=== PATIENT | male | born 1950 | race Caucasian/White ===

== ENCOUNTER 2019-04-24 06:00 | Outpatient (RCR) | payer MEDICARE, SELFPAY | END 2019-05-09 00:01 | LOC: TPT 06:00 | PROVIDERS: Family Provider Nurse Practitioner Family; Visit Provider Psychiatry & Neurology Psychiatry | DX: M54.6 Pain in thoracic spine (principal); M54.2 Cervicalgia; M25.519 Pain in unspecified shoulder | CPT/HCPCS: 97110; 97161; 97530; G0283 ==

== ENCOUNTER 2019-05-17 | Outpatient (RCR) | payer MEDICARE, SELFPAY | END 2019-05-31 | disposition home or self-care (01) | LOC: TPT | PROVIDERS: Visit Provider Psychiatry & Neurology Psychiatry | DX: M54.2 Cervicalgia (principal); G44.52 New daily persistent headache (NDPH); M25.511 Pain in right shoulder; M54.6 Pain in thoracic spine | CPT/HCPCS: 97110; 97140; G0283 ==

== ENCOUNTER 2019-06-01 14:00 | Emergency (ER) | payer MEDICARE, SELFPAY ==
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
[2019-06-01 14:02] VITALS: BP 111/68; PULSE 75; RESP 20; O2SAT 98
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
[2019-06-01 14:19] LABS: Basophils % 0.1 %; Eosinophils % 0.1 %; Hematocrit 35.5 % (42.0-52.0); Hemoglobin 11.7 g/dL (11.7-16.6); Lymphocytes # 1.4 10^3/uL (0.8-4.8); Lymphocytes % 12.1 %; Mean Corpuscular Hemoglobin 31.3 pg (28.0-34.0); Mean Corpuscular Volume 94.9 fL (80-94); Mean Platelet Volume 10.4 fL (7.4-10.4); Monocytes # 0.7 10^3/uL (0.2-0.9); Monocytes % 6.4 %; Neutrophils # 9.3 10^3/uL (1.8-7.7); Neutrophils % 80.5 %; Nucleated Red Blood Cells % 0 %; Platelet Count 231 10^3/cmm (130-400); Red Blood Count 3.74 10^6/uL (4.1-5.3); Red Cell Distribution Width 11.5 % (12.1-15.1); White Blood Count 11.6 10^3/uL (4.0-10.0)
[2019-06-01 14:29] LABS: Alanine Aminotransferase 34 U/L (0-41); Alkaline Phosphatase 67 IU/L (40-130); Anion Gap 17.1 (5-19); Aspartate Amino Transferase 64 U/L (0-40); Blood Urea Nitrogen 8 mg/dL (8-23); Calcium 9.1 mg/dL (8.5-10.5); Carbon Dioxide 26 mmol/L (22-29); Chloride 96 mmol/L (98-107); Globulin 2.7 g/dL (1.3-4.6); Glomerular Filtration Rate 66.6 mL/min (90-130); Glucose 167 mg/dL (74-106); Potassium 3.1 mmol/L (3.5-5.1); Sodium 136 mmol/L (136-145); Total Bilirubin 1.2 mg/dL (0.15-1.2); Total Protein 6.7 g/dL (6.6-8.7)
[2019-06-01 14:30] LABS: Alcohol Level < 10 mg/dL (0-10)
[2019-06-01] MEDS: ondansetron 2 mg/ML SDV 2 mL 4 MG IVP (14:33)
[2019-06-01] MEDS: sodium chloride 0.9% 1,000 ML 999 ML IV (14:34)
[2019-06-01] MEDS: HYDROmorphone 1 mg/mL INJ 1 mL 2 MG (14:34)
--- NOTE | 2019-06-01 14:56 | XRR_ITS ---
PROCEDURE INFORMATION: Exam: XR Chest, 1 View Exam date and time: 06/01/2019 3:15 PM Age: 68 years old Clinical indication: Device placement; Chest tube TECHNIQUE: Imaging protocol: XR of the chest Views: 1 view. COMPARISON: CR XR chest 1V portable [id number] 06/01/2019 1:57 PM FINDINGS: Lungs: There is granulomas seen in the left hilum and left upper lobe No consolidation. Pleural space: Unremarkable. No pleural effusion. No pneumothorax. Heart/Mediastinum: Unremarkable. No cardiomegaly. Bones/joints: Multiple displaced left rib fractures A chest tube is in place extending into the medial aspect of the left upper lobe. XR/XR chest 1V portable [id number] IMPRESSION: Multiple left side posterior lateral rib fractures. Chest tube extends into the medial aspect of the left upper lobe Granulomas left perihilar and left upper lobe
[2019-06-01 15:00] LABS: Lactic Acid 3.3 mmol/L (0.5-2.2)
[2019-06-01 15:15] VITALS: BP 143/73; PULSE 98; RESP 20; O2SAT 92
[2019-06-01 15:16] VITALS: O2SAT 96
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
[2019-06-01] MEDS: iodixanol 320 mg/mL 100mL Btl IV (16:19)
== END 2019-06-01 15:26 ==
PROVIDERS: Emergency Provider Emergency Medicine; Family Provider Nurse Practitioner Family; PCP Nurse Practitioner Family
DX: S27.0XXA Traumatic pneumothorax, initial encounter (principal); S36.039A Unspecified laceration of spleen, initial encounter; S72.92XB Unspecified fracture of left femur, initial encounter for open fracture type I or II; V53.6XXA Passenger in pick-up truck or van injured in collision with car, pick-up truck or van in traffic accident, initial encounter
CPT/HCPCS: 32551; 32556; 70450; 71045; 71260; 72125; 73030; 73060; 73110; 74177; 80053; 80307; 83605; 85025; 85610; 86850; 86900; 96360; 96374; 99282; J1170; J2405; J7030; P9016; Q9967

== ENCOUNTER 2020-04-07 08:03 | Emergency (ER) | payer MEDICARE, SELFPAY ==
[2020-04-07 08:04] VITALS: BP 137/70; PULSE 87; RESP 18; TEMP 36.9; O2SAT 100; BMI 19.2
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
[2020-04-07 08:53] LABS: Basophils % 0.3 %; Eosinophils # 0.1 10^3/uL (0.0-0.8); Eosinophils % 0.8 %; Hemoglobin 13.2 g/dL (11.7-16.6); Lymphocytes # 1.1 10^3/uL (0.8-4.8); Lymphocytes % 10.5 %; Mean Corpuscular HGB Conc 32.2 g/dL (30.0-36.0); Mean Corpuscular Hemoglobin 30.4 pg (28.0-34.0); Mean Corpuscular Volume 94.5 fL (80-94); Monocytes # 1.4 10^3/uL (0.2-0.9); Monocytes % 13.2 %; Neutrophils # 7.95 10^3/uL (1.8-7.7); Neutrophils % 74.6 %; Nucleated Red Blood Cells % 0 %; Platelet Count 199 10^3/cmm (130-400); Red Blood Count 4.34 10^6/uL (4.1-5.3); Red Cell Distribution Width 12.5 % (12.1-15.1); White Blood Count 10.7 10^3/uL (4.0-10.0)
--- NOTE | 2020-04-07 08:55 | PC.NURSE ---
xrays completed,patient tolerated well
[2020-04-07] MEDS: HYDROcodone-acetaminophen 10-325 mg Tablet 1 TAB PO (09:03)
[2020-04-07 09:12] VITALS: BP 130/74; PULSE 88; RESP 20; O2SAT 100
== END 2020-04-07 09:15 | disposition home or self-care (01) ==
PROVIDERS: Emergency Provider Nurse Practitioner Family
DX: M25.562 Pain in left knee (principal); Z79.82 Long term (current) use of aspirin
CPT/HCPCS: 12345; 29530; 73552; 85025; 99281; 99283; E0114

== ENCOUNTER 2020-05-07 12:18 | Outpatient (RCR) | payer SELFPAY | END 2020-05-09 23:59 | disposition home or self-care (01) | LOC: TPT 12:18 | PROVIDERS: Referring Provider Orthopaedic Surgery; Visit Provider Orthopaedic Surgery | DX: S72.352 Displaced comminuted fracture of shaft of left femur (principal); X58.XXXD Exposure to other specified factors, subsequent encounter | CPT/HCPCS: 97110; 97161 ==

== ENCOUNTER 2020-05-10 06:00 | Outpatient (RCR) | payer MEDICARE, SELFPAY | END 2020-06-09 23:59 | disposition home or self-care (01) | LOC: TPT 06:00 | PROVIDERS: Referring Provider Orthopaedic Surgery; Visit Provider Orthopaedic Surgery | DX: S72.352D Displaced comminuted fracture of shaft of left femur, subsequent encounter for closed fracture with routine healing (principal); X58.XXXD Exposure to other specified factors, subsequent encounter | CPT/HCPCS: 97110 ==

== ENCOUNTER → 2020-06-05 09:44 | Outpatient (BNVA) | payer MEDICARE, SELFPAY | PROVIDERS: PCP Family Medicine; Referring Provider Family Medicine; Visit Provider Anesthesiology | DX: G89.29 Other chronic pain (principal); G25.2 Other specified forms of tremor; M54.2 Cervicalgia; M54.9 Dorsalgia, unspecified; Z79.891 Long term (current) use of opiate analgesic | CPT/HCPCS: 99204; 99205 ==

== ENCOUNTER → 2020-07-05 10:30 | Outpatient (BNVA) | payer MEDICARE, SELFPAY | PROVIDERS: PCP Family Medicine; Visit Provider Anesthesiology | DX: G89.29 Other chronic pain (principal); M54.9 Dorsalgia, unspecified; M54.2 Cervicalgia; Z79.891 Long term (current) use of opiate analgesic | CPT/HCPCS: 99214 ==

== ENCOUNTER → 2020-07-30 09:11 | Outpatient (BNVA) | payer MEDICARE, SELFPAY | PROVIDERS: PCP Family Medicine; Visit Provider Anesthesiology | DX: G89.29 Other chronic pain (principal); M54.9 Dorsalgia, unspecified; M54.2 Cervicalgia; Z79.891 Long term (current) use of opiate analgesic | CPT/HCPCS: 99214 ==

== ENCOUNTER 2020-08-21 06:00 | Outpatient (RCR) | payer MEDICARE, SELFPAY | END 2020-09-06 23:59 | disposition home or self-care (01) | LOC: TPT 06:00 | PROVIDERS: PCP Family Medicine; Referring Provider Orthopaedic Surgery; Visit Provider Orthopaedic Surgery | DX: S72.352 Displaced comminuted fracture of shaft of left femur (principal); X58.XXXD Exposure to other specified factors, subsequent encounter | CPT/HCPCS: 97032; 97110; 97161; G0283 ==

== ENCOUNTER → 2020-08-27 08:35 | Outpatient (BNVA) | payer MEDICARE, SELFPAY | PROVIDERS: PCP Family Medicine; Visit Provider Anesthesiology | DX: G89.29 Other chronic pain (principal); M54.9 Dorsalgia, unspecified; M79.605 Pain in left leg; M54.2 Cervicalgia; Z79.891 Long term (current) use of opiate analgesic | CPT/HCPCS: 99214 ==

== ENCOUNTER 2020-09-07 06:00 | Outpatient (RCR) | payer MEDICARE, SELFPAY | END 2020-10-07 23:59 | disposition home or self-care (01) | LOC: TPT 06:00 | PROVIDERS: PCP Family Medicine; Referring Provider Orthopaedic Surgery; Visit Provider Orthopaedic Surgery | DX: S72.352 Displaced comminuted fracture of shaft of left femur (principal); X58.XXXD Exposure to other specified factors, subsequent encounter | CPT/HCPCS: 97110; 97164; G0283 ==

== ENCOUNTER 2020-10-08 06:00 | Outpatient (RCR) | payer MEDICARE, SELFPAY | END 2020-11-06 23:59 | disposition home or self-care (01) | LOC: TPT 06:00 | PROVIDERS: PCP Family Medicine; Referring Provider Orthopaedic Surgery; Visit Provider Orthopaedic Surgery | DX: S72.352 Displaced comminuted fracture of shaft of left femur (principal); X58.XXXD Exposure to other specified factors, subsequent encounter | CPT/HCPCS: 97032; 97110; G0283 ==

== ENCOUNTER → 2020-11-01 08:08 | Outpatient (BNVA) | payer MEDICARE, SELFPAY | PROVIDERS: PCP Family Medicine; Visit Provider Anesthesiology | DX: G89.29 Other chronic pain (principal); M54.42 Lumbago with sciatica, left side; M54.2 Cervicalgia; Z79.891 Long term (current) use of opiate analgesic | CPT/HCPCS: 99214 ==

== ENCOUNTER 2020-12-17 06:00 | Outpatient (RCR) | payer MEDICARE, SELFPAY | END 2021-01-07 23:59 | disposition home or self-care (01) | LOC: TPT 06:00 | PROVIDERS: PCP Family Medicine; Referring Provider Orthopaedic Surgery; Visit Provider Orthopaedic Surgery | DX: S72.352 Displaced comminuted fracture of shaft of left femur (principal); X58.XXXD Exposure to other specified factors, subsequent encounter | CPT/HCPCS: 97110; 97162 ==

== ENCOUNTER → 2020-12-26 08:05 | Outpatient (BNVA) | payer MEDICARE, SELFPAY | PROVIDERS: PCP Family Medicine; Visit Provider Anesthesiology | DX: G89.29 Other chronic pain (principal); M54.5 Low back pain; M79.605 Pain in left leg; M54.2 Cervicalgia; Z79.891 Long term (current) use of opiate analgesic | CPT/HCPCS: 99214 ==

== ENCOUNTER → 2021-02-05 12:25 | Outpatient (BNVA) | payer MEDICARE, SELFPAY | PROVIDERS: PCP Family Medicine; Visit Provider Nurse Practitioner Family | DX: J32.0 Chronic maxillary sinusitis (principal); Z11.52 Encounter for screening for COVID-19; Z20.822 Contact with and (suspected) exposure to COVID-19 | CPT/HCPCS: 87635 ==

== ENCOUNTER → 2021-02-25 08:07 | Outpatient (BNVA) | payer MEDICARE, SELFPAY | PROVIDERS: PCP Family Medicine; Visit Provider Anesthesiology | DX: G89.29 Other chronic pain (principal); M54.50 Low back pain, unspecified; M54.2 Cervicalgia; Z79.891 Long term (current) use of opiate analgesic | CPT/HCPCS: 99214 ==

== ENCOUNTER → 2021-03-03 15:45 | Outpatient (BNVA) | payer MEDICARE, SELFPAY | PROVIDERS: PCP Family Medicine; Visit Provider Family Medicine | DX: R53.83 Other fatigue (principal); I71.4 Abdominal aortic aneurysm, without rupture; R06.02 Shortness of breath; Z77.22 Contact with and (suspected) exposure to environmental tobacco smoke (acute) (chronic); Z71.89 Other specified counseling | CPT/HCPCS: 71046; 80053; 82607; 83540; 84403; 84443; 85025 ==

== ENCOUNTER → 2021-04-29 07:56 | Outpatient (BNVA) | payer MEDICARE, SELFPAY | PROVIDERS: PCP Family Medicine; Visit Provider Anesthesiology | DX: G89.29 Other chronic pain (principal); M54.50 Low back pain, unspecified; M54.2 Cervicalgia; Z79.891 Long term (current) use of opiate analgesic | CPT/HCPCS: 99214 ==

== ENCOUNTER → 2021-06-16 11:03 | Outpatient (BNVA) | payer MEDICARE, SELFPAY | PROVIDERS: PCP Family Medicine; Visit Provider Family Medicine | DX: E53.8 Deficiency of other specified B group vitamins (principal); D64.9 Anemia, unspecified; G89.29 Other chronic pain; M54.2 Cervicalgia; J30.9 Allergic rhinitis, unspecified | CPT/HCPCS: 82607; 83540; 85025 ==

== ENCOUNTER 2022-02-07 16:11 | Emergency (ER) | payer MEDICARE, SELFPAY ==
[2022-02-07 16:22] VITALS: BP 180/104; PULSE 103; RESP 16; TEMP 36.7; O2SAT 97
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
--- NOTE | 2022-02-23 10:56 | DCPLANNER ---
Addendum entered by Elisa Appiah 02/25/22 11:31: dental practice manager received the following message from the general surgery clinic regarding follow up appointment: patient is seeing PCP and will go from there. Patient is doing better Original Note: dental practice manager had message to schedule a follow up appointment for patient with general surgery. dental practice manager sent patients information to the front office staff at general surgery. Patients information will be printed and reviewed. Clinic will call patient with appointment information.
== END 2022-02-07 16:50 | disposition home or self-care (01) ==
PROVIDERS: Emergency Provider Family Medicine; PCP Family Medicine
DX: K22.2 Esophageal obstruction (principal); K21.9 Gastro-esophageal reflux disease without esophagitis; Z77.22 Contact with and (suspected) exposure to environmental tobacco smoke (acute) (chronic)
CPT/HCPCS: 99281

== ENCOUNTER → 2023-05-17 11:39 | Outpatient (BNVA) | payer MEDICARE, SELFPAY | PROVIDERS: PCP Family Medicine; Visit Provider Nurse Practitioner Family | DX: R53.83 Other fatigue (principal); W57.XXXA Bitten or stung by nonvenomous insect and other nonvenomous arthropods, initial encounter; K52.9 Noninfective gastroenteritis and colitis, unspecified; Z11.59 Encounter for screening for other viral diseases; T78.40XA Allergy, unspecified, initial encounter; R23.1 Pallor; J01.00 Acute maxillary sinusitis, unspecified; R05.9 Cough, unspecified | CPT/HCPCS: 80053; 82607; 82746; 82785; 86003; 86008; 86618; 86666; 86757; 87486; 87581; 87633 ==

== ENCOUNTER → 2023-08-19 14:02 | Outpatient (BNVA) | payer MEDICARE, SELFPAY | PROVIDERS: PCP Family Medicine; Visit Provider Family Medicine | DX: R07.0 Pain in throat (principal); R68.89 Other general symptoms and signs | CPT/HCPCS: 87071; 87400; 87880 ==

== ENCOUNTER → 2023-09-10 09:50 | Outpatient (BNVA) | payer MEDICARE, SELFPAY | PROVIDERS: PCP Family Medicine; Visit Provider Nurse Practitioner Family | DX: R07.0 Pain in throat (principal); R50.9 Fever, unspecified; R19.7 Diarrhea, unspecified | CPT/HCPCS: 87071; 87400; 87880 ==

== ENCOUNTER → 2023-09-30 08:09 | Outpatient (BNVA) | payer MEDICARE, SELFPAY | PROVIDERS: PCP Family Medicine; Visit Provider Family Medicine | DX: R30.0 Dysuria | CPT/HCPCS: 81000 ==

== ENCOUNTER → 2024-01-31 11:15 | Outpatient (BNVA) | payer MEDICARE, SELFPAY | PROVIDERS: PCP Family Medicine; Visit Provider Nurse Practitioner Family | DX: Z79.891 Long term (current) use of opiate analgesic (principal); J32.0 Chronic maxillary sinusitis; J01.01 Acute recurrent maxillary sinusitis; E53.8 Deficiency of other specified B group vitamins; R05.9 Cough, unspecified; F41.8 Other specified anxiety disorders | CPT/HCPCS: 80053; 82306; 82607; 82746; 84443; 85025; 87426 ==

== ENCOUNTER → 2025-01-29 12:52 | Outpatient (BNVA) | payer MEDICARE, SELFPAY | PROVIDERS: PCP Nurse Practitioner Family; Visit Provider Student in an Organized Health Care Education/Training Program | DX: K63.89 Other specified diseases of intestine (principal); C18.9 Malignant neoplasm of colon, unspecified | CPT/HCPCS: 99203 ==